=== PATIENT | male | born 1980 | race Caucasian/White ===

== ENCOUNTER → 2016-11-23 | Outpatient (CLI) | payer OTHER ==
[2016-11-23 08:17] LABS: BLOOD UREA NITROGEN 11 mg/dL (7-18)
[2016-11-23 08:19] LABS: ASPARTATE AMINO TRANSFERASE 24 U/L (15-37)
== END | disposition home or self-care (01) ==
LOC: LAB 07:32
PROVIDERS: ATTEND Registered Nurse
DX: Z00.8 Encounter for other general examination (principal); K64.9 Unspecified hemorrhoids; R19.5 Other fecal abnormalities; F17.210 Nicotine dependence, cigarettes, uncomplicated
CPT/HCPCS: 36415; 80053; 80061; 85025

== ENCOUNTER 2018-12-31 10:27 | Day surgery (SDC) | payer OTHER ==
[~2018-12-31] VITALS: Ht 203.2 cm; Wt 140.9 kg
[~2018-12-31 10:27] MED LIST: BUPIVACAINE/PF 0.5% ONE; EPINEPHRINE 1 MG/ML, 1ML ONE; NEOSPORIN OINT. PKT 1 PACKET ONE
[2018-12-31] MEDS ORDERED: NONE PER PT (10:52)
[2018-12-31] MEDS ORDERED: LACTATED RINGERS 1,000 ML IV SCH (10:53)
[2018-12-31 11:22] VITALS: BP 122/82
[2018-12-31] MEDS ORDERED: FENTANYL PF 250 MCG/5ML ONE (11:25)
[2018-12-31] MEDS ORDERED: MIDAZOLAM 1 MG/ML, 2ML ONE (11:25)
[2018-12-31] MEDS ORDERED: LABETALOL 5MG/ML, 20ML IV PRN (11:30)
[2018-12-31] MEDS ORDERED: hydrALAzine 20 MG/ML, 1ML IV PRN (11:30)
[2018-12-31] MEDS ORDERED: METOCLOPRAMIDE 5 MG/ML, 2ML IV PRN (11:30)
[2018-12-31] MEDS ORDERED: OXYcodone 5 MG/5 ML ORAL.SOL UDC PO PRN (11:30)
[2018-12-31] MEDS ORDERED: ONDANSETRON 2MG/ML, 2ML IV PRN (11:30)
[2018-12-31] MEDS ORDERED: MEPERIDINE/PF 25MG/0.5ML IVPush PRN (11:30)
[2018-12-31] MEDS ORDERED: HYDROmorphone 2 MG/ML, 1ML IVPush PRN (11:30)
[2018-12-31] MEDS ORDERED: FENTANYL PF 100 MCG/2ML IV PRN (11:30)
[2018-12-31] MEDS ORDERED: METOPROLOL 1 MG/ML, 5ML IV PRN (11:30)
[2018-12-31] MEDS ORDERED: ACETAMINOPHEN 325 MG TABLET PO PRN (11:30)
[2018-12-31] MEDS ORDERED: LORazepam 2 MG/ML, 1ML IVPush PRN (11:30)
[2018-12-31] MEDS ORDERED: ONDANSETRON 2MG/ML, 2ML ONE (11:35)
[2018-12-31] MEDS ORDERED: CEFAZOLIN 1,000 MG ONE (11:35)
[2018-12-31] MEDS ORDERED: PROPOFOL 10 MG/ML, 20ML ONE (11:35)
[2018-12-31] MEDS ORDERED: ACETAMINOPHEN 650 MG/20.3 ML UDC ONE (12:27)
[2018-12-31] MEDS ORDERED: OXYcodone 5 MG/5 ML ORAL.SOL UDC ONE (12:28)
[2018-12-31] MEDS ORDERED: hydrALAzine 20 MG/ML, 1ML ONE (12:49)
== END 2018-12-31 14:00 | disposition home or self-care (01) ==
LOC: OUT 10:27
PROVIDERS: ATTEND Orthopaedic Surgery Adult Reconstructive Orthopaedic Surgery
DX: S83.242A Other tear of medial meniscus, current injury, left knee, initial encounter (principal); M19.90 Unspecified osteoarthritis, unspecified site; F17.290 Nicotine dependence, other tobacco product, uncomplicated; Z79.1 Long term (current) use of non-steroidal anti-inflammatories (NSAID); X58.XXXA Exposure to other specified factors, initial encounter; Y93.89 Activity, other specified; Y92.89 Other specified places as the place of occurrence of the external cause; Y99.8 Other external cause status
CPT/HCPCS: 29881; J0171; J0360; J0690; J2250; J2405; J2704; J3010; J7120

== ENCOUNTER 2019-07-30 11:41 | Outpatient (CLI) | payer OTHER ==
[~2019-07-30 11:41] MED LIST changes: -BUPIVACAINE/PF 0.5% ONE; -EPINEPHRINE 1 MG/ML, 1ML ONE; -NEOSPORIN OINT. PKT 1 PACKET ONE; +NONE PER PT
[2019-07-30 12:08] LABS: BASOPHILS # (AUTO) 0.03 x10^3/uL (0-0.1); BASOPHILS % (AUTO) 0 % (0-1); EOSINOPHILS # (AUTO) 0.25 x10^3/uL (0-0.4); EOSINOPHILS % (AUTO) 3 % (1-7); LYMPHOCYTES # (AUTO) 2.86 x10^3/uL (1-3.4); LYMPHOCYTES % (AUTO) 32 % (22-44); MD NO; MEAN CORPUSCULAR HEMOGLOBIN 30.8 pg (27.5-34.5); MEAN CORPUSCULAR HGB CONC 33.9 g/dL (33.2-36.2); MEAN CORPUSCULAR VOLUME 90.8 fL (81-97); MEAN PLATELET VOLUME 7.4 fL (7.4-10.4); MONOCYTES # (AUTO) 0.42 x10^3/uL (0.2-0.8); MONOCYTES % (AUTO) 5 % (2-9); NEUTROPHILS # (AUTO) 5.48 x10^3/uL (1.8-6.8); NEUTROPHILS % (AUTO) 61 % (42-75); PLATELET COUNT 266 x10^3/uL (130-400); RED CELL DISTRIBUTION WIDTH 12.8 % (9.4-14.8)
[2019-07-30 12:18] LABS: ALANINE AMINOTRANSFERASE 65 U/L (12-78); ALBUMIN 3.9 g/dL (3.4-5.0); ANION GAP 5 mmol/L (5-15); CALCIUM 8.6 mg/dL (8.5-10.1); CHLORIDE 110 mmol/L (98-107)
[2019-07-30 12:29] LABS: ALKALINE PHOSPHATASE 68 U/L (45-117); BILIRUBIN,TOTAL 0.9 mg/dL (0.2-1.0); C-REACTIVE PROTEIN, QUANT 0.66 mg/dL (0.02-0.49); CHOL/HDL RATIO 5.9; CHOLESTEROL, TOTAL 230 mg/dL (140-239); CREATININE 1.07 mg/dL (0.7-1.3); HCT (SEDRATE) 46.3 % (39.2-51.8); HDL CHOL % 17 % (26-37); HDL CHOLESTEROL (DIRECT) 39 mg/dL (40-60); LDL CHOLESTEROL,CALCULATED 152 mg/dL (54-169); LDL/HDL RATIO 3.9 (0.5-3.0); TOTAL PROTEIN 7.2 g/dL (6.4-8.2); TRIGLYCERIDES 197 mg/dL (50-200); VLDL CHOLESTEROL 39 mg/dL (0-25)
== END 2019-07-30 23:59 | disposition home or self-care (01) ==
LOC: LAB 11:41
PROVIDERS: ATTEND Internal Medicine
DX: Z00.8 Encounter for other general examination (principal); M13.0 Polyarthritis, unspecified; M25.50 Pain in unspecified joint; R53.83 Other fatigue; R73.03 Prediabetes
CPT/HCPCS: 36415; 80053; 80061; 82306; 83036; 84443; 85025; 85651; 86038; 86140; 86200; 86225; 86235; 86430

== ENCOUNTER → 2020-02-16 | Outpatient (CLI) | payer OTHER ==
[2020-02-16 09:48] LABS: CHLORIDE 114 mmol/L (98-107)
[2020-02-16 10:07] LABS: ALANINE AMINOTRANSFERASE 42 U/L (12-78); ALBUMIN 3.8 g/dL (3.4-5.0); ALKALINE PHOSPHATASE 67 U/L (45-117); ANION GAP 5 mmol/L (5-15); BILIRUBIN,TOTAL 0.4 mg/dL (0.2-1.0); CALCIUM 8.4 mg/dL (8.5-10.1); CHOLESTEROL, TOTAL 204 mg/dL (140-239); CREATININE 1.12 mg/dL (0.7-1.3); TOTAL PROTEIN 6.9 g/dL (6.4-8.2); TRIGLYCERIDES 267 mg/dL (50-200); VLDL CHOLESTEROL 53 mg/dL (0-25)
[2020-02-16 10:15] LABS: CHOL/HDL RATIO 7.3; HDL CHOL % 14 % (26-37); HDL CHOLESTEROL (DIRECT) 28 mg/dL (40-60); LDL CHOLESTEROL,CALCULATED 123 mg/dL (54-169); LDL/HDL RATIO 4.4 (0.5-3.0)
== END | disposition home or self-care (01) ==
LOC: LAB 09:22
PROVIDERS: ATTEND Internal Medicine
DX: E55.9 Vitamin D deficiency, unspecified (principal); E78.2 Mixed hyperlipidemia; R73.03 Prediabetes
CPT/HCPCS: 36415; 80053; 80061; 82306; 83036; 84443